=== PATIENT | female | born 1955 | race Caucasian/White ===

== ENCOUNTER → 2017-01-29 | Outpatient (CLI) | payer OTHER ==
[2017-01-29 13:36] LABS: Basophils # (A) 0.1 k/uL (0-0.2); Basophils % (A) 1 %; CH 33.3; CHCM 33.9; Eosinophils # (A) 0.1 k/uL (0-0.7); Eosinophils % (A) 2 %; HCT 38.2 % (34.0-46.0); HDW 2.47; HGB 12.7 gm/dL (11.4-16.0); Luc # (Auto) 0.13; Luc % (Auto) 3; Lymphocytes # (A) 1.2 k/uL (1.0-4.8); Lymphocytes % (A) 27 %; MCH 32.8 pg (25.0-35.0); MCHC 33.3 g/dL (31.0-37.0); MCV 98.5 fL (80.0-100.0); Mean Platelet Volume 6.3; Monocytes # (A) 0.4 k/uL (0-1.0); Monocytes % (A) 8 %; Neutrophils # (A) 2.6 k/uL (1.3-7.7); Neutrophils % (A) 58 %; RBC 3.88 m/uL (3.80-5.40); RDW 13.4 % (11.5-15.5); WBC 4.4 k/uL (3.8-10.6); WBC (Perox) 4.58
[2017-01-29 14:24] LABS: ALT 42 U/L (9-52); AST 29 U/L (14-36); Alkaline Phosphatase 48 U/L (38-126); Anion Gap 10 mmol/L; Blood Urea Nitrogen 12 mg/dL (7-17); Calcium 9.5 mg/dL (8.4-10.2); Carbon Dioxide 26 mmol/L (22-30); Chloride 99 mmol/L (98-107); Glucose 84 mg/dL (74-99); Non-African American GFR(MDRD) >60 (>60 ml/min/1.73 sqM); Potassium 4.6 mmol/L (3.5-5.1); Sodium 135 mmol/L (137-145); Total Bilirubin 0.5 mg/dL (0.2-1.3); Total Protein 6.7 g/dL (6.3-8.2)
== END | disposition home or self-care (01) ==
LOC: LABWHC1 12:56
PROVIDERS: ATTEND Internal Medicine Gastroenterology
DX: K51.90 Ulcerative colitis, unspecified, without complications (principal)
CPT/HCPCS: 36415; 80053; 85025

== ENCOUNTER → 2017-03-11 | Outpatient (CLI) | payer OTHER ==
[2017-03-11 12:01] LABS: ALT 37 U/L (9-52); AST 31 U/L (14-36); Alkaline Phosphatase 41 U/L (38-126); Anion Gap 9 mmol/L; Blood Urea Nitrogen 15 mg/dL (7-17); Calcium 9.3 mg/dL (8.4-10.2); Carbon Dioxide 28 mmol/L (22-30); Chloride 103 mmol/L (98-107); Cholesterol 166 mg/dL (<200); Glucose 90 mg/dL (74-99); HDL Cholesterol 82 mg/dL (40-60); Non-African American GFR(MDRD) >60 (>60 ml/min/1.73 sqM); Potassium 4.3 mmol/L (3.5-5.1); Sodium 140 mmol/L (137-145); Total Bilirubin 0.4 mg/dL (0.2-1.3); Total Protein 6.6 g/dL (6.3-8.2)
== END | disposition home or self-care (01) ==
LOC: LABWHC1 11:02
PROVIDERS: ATTEND Internal Medicine Interventional Cardiology
DX: E78.2 Mixed hyperlipidemia (principal)
CPT/HCPCS: 36415; 80053; 80061

== ENCOUNTER → 2017-07-30 | Outpatient (CLI) | payer OTHER ==
--- NOTE | 2017-07-31 10:13 | MM ---
Reason for exam: screening (asymptomatic). Last mammogram was performed 2 years and 3 months ago. History: Patient is postmenopausal. Benign excisional biopsy of the right breast, May 2005. 2 cyst aspirations of the left breast. Excisional biopsy of the left breast. Took hormonal contraceptives for 9 years beginning at age 21. Physical Findings: A clinical breast exam by your physician is recommended on an annual basis and results should be correlated with mammographic findings. MG Screening Mammo w CAD Bilateral CC and MLO view(s) were taken. Prior study comparison: April 19, 2015, bilateral MG screening mammo w CAD. July 29, 2013, CAD bilateral diagnostic mammogram. The breast tissue is heterogeneously dense. This may lower the sensitivity of mammography. Finding: There are typically benign vascular calcifications in both breasts. There is no discrete abnormality. ASSESSMENT: Benign, BI-RAD 2 RECOMMENDATION: Routine screening mammogram of both breasts in 1 year.
== END | disposition home or self-care (01) ==
LOC: RADMAMWWP 13:42
PROVIDERS: ATTEND Obstetrics & Gynecology
DX: Z12.31 Encounter for screening mammogram for malignant neoplasm of breast (principal)
CPT/HCPCS: 77067

== ENCOUNTER → 2017-09-25 | Outpatient (CLI) | payer OTHER ==
[2017-09-25 13:07] LABS: ALT 23 U/L (9-52); AST 28 U/L (14-36); Albumin 4.2 g/dL (3.5-5.0); Alkaline Phosphatase 46 U/L (38-126); Anion Gap 8 mmol/L; Blood Urea Nitrogen 18 mg/dL (7-17); Carbon Dioxide 30 mmol/L (22-30); Chloride 101 mmol/L (98-107); Cholesterol 162 mg/dL (<200); Glucose 89 mg/dL (74-99); HDL Cholesterol 82 mg/dL (40-60); LDL Cholesterol,Calculated 68 mg/dL (0-99); Potassium 4.7 mmol/L (3.5-5.1); Sodium 139 mmol/L (137-145); Total Bilirubin 0.5 mg/dL (0.2-1.3); Triglycerides 60 mg/dL (<150)
== END | disposition home or self-care (01) ==
LOC: LABWHC1 12:25
PROVIDERS: ATTEND Internal Medicine Interventional Cardiology
DX: E78.2 Mixed hyperlipidemia (principal)
CPT/HCPCS: 36415; 80053; 80061

== ENCOUNTER 2018-03-06 09:09 | Day surgery (SDC) | payer OTHER ==
[2018-03-04 09:55] VITALS: BMI 22.3
[~2018-03-06 09:09] MED LIST: LACTATED RINGERS 1,000 ML IV SCH; LIDOCAINE 1% 20 ML VIAL (10MG/ML) FOR IV START INTRADERMA PRN
[2018-03-06 10:17] VITALS: TEMP 98.1
[2018-03-06] MEDS ORDERED: PROPOFOL 10 MG/ML 20 ML VIAL IV ONE (10:36)
[2018-03-06] MEDS ORDERED: LIDOCAINE 1% INJ 10MG/ML (20 ML MDV) ONE (10:36)
--- NOTE | 2018-03-06 10:50 | P.PCN ---
Date of Procedure: 03/06/18 Procedure(s) Performed: BRIEF HISTORY: Patient is a 62-year-old pleasant white female, scheduled for an elective colonoscopy as a part of surveillance of long-standing history of ulcerative colitis. She was diagnosed in 2009 and remains in clinical remission. She is maintained on azathioprine and Lialda. PROCEDURE PERFORMED: Colonoscopy with biopsy. PREOPERATIVE DIAGNOSIS: Surveillance of long-standing history of ulcerative colitis. IV sedation per Anesthesia. PROCEDURE: After informed consent was obtained, the patient, was brought into the endoscopy unit. IV sedation was administered by Anesthesia under continuous monitoring. Digital rectal examination was normal. Initially the Olympus CF- 160 flexible video colonoscope was then inserted in the rectum, gradually advanced into the cecum without any difficulty. Careful examination was performed as the scope was gradually being withdrawn. Ileocecal valve and the appendiceal orifice were visualized and appeared normal. Prep was excellent. Mucosa of the cecum, ascending colon, transverse colon, descending colon, sigmoid colon, and rectum appeared normal. Multiple random biopsies were done from rectum to the cecum at every 10 cm intervals. Retroflexion was performed in the rectum and no lesions were seen. The patient tolerated the procedure well. IMPRESSION: Normal-appearing colon from rectum to cecum with no evidence of active colitis or colorectal neoplasia . RECOMMENDATIONS: Findings of this examination were discussed with the patient as well as a family. She was advised to follow with the biopsy results. She will continue with her current medications. If the biopsy does not have any evidence of dysplasia, she can have a repeat colonoscopy in 2 years.
[2018-03-06 10:59] VITALS: RESP 16
[2018-03-06 11:23] VITALS: BP 135/79; PULSE 68
== END 2018-03-06 11:47 | disposition home or self-care (01) ==
LOC: ORWHC2ENDO 09:09
PROVIDERS: ATTEND Internal Medicine Gastroenterology
DX: K51.90 Ulcerative colitis, unspecified, without complications (principal); K62.89 Other specified diseases of anus and rectum; I10 Essential (primary) hypertension; E78.5 Hyperlipidemia, unspecified; Z79.899 Other long term (current) drug therapy
CPT/HCPCS: 88305; 45380; J2001; J2704

== ENCOUNTER → 2018-03-16 | Outpatient (CLI) | payer OTHER ==
[2018-03-16 17:12] LABS: Basophils # (A) 0.1 k/uL (0-0.2); Basophils % (A) 1 %; Eosinophils # (A) 0.1 k/uL (0-0.7); Eosinophils % (A) 2 %; HCT 39.2 % (34.0-46.0); HGB 12.3 gm/dL (11.4-16.0); Lymphocytes # (A) 1.1 k/uL (1.0-4.8); Lymphocytes % (A) 19 %; MCH 31.7 pg (25.0-35.0); MCHC 31.4 g/dL (31.0-37.0); MCV 101.1 fL (80.0-100.0); Macrocytosis Slight; Mean Platelet Volume 6.5; Monocytes # (A) 0.3 k/uL (0-1.0); Monocytes % (A) 6 %; Neutrophils # (A) 3.9 k/uL (1.3-7.7); Neutrophils % (A) 71 %; Platelet Count 298 k/uL (150-450); RBC 3.88 m/uL (3.80-5.40); RDW 14.5 % (11.5-15.5); WBC 5.6 k/uL (3.8-10.6)
[2018-03-16 17:22] LABS: ALT 32 U/L (9-52); AST 30 U/L (14-36); Albumin 4.2 g/dL (3.5-5.0); Alkaline Phosphatase 44 U/L (38-126); Anion Gap 6 mmol/L; Blood Urea Nitrogen 12 mg/dL (7-17); Calcium 9.5 mg/dL (8.4-10.2); Carbon Dioxide 29 mmol/L (22-30); Chloride 103 mmol/L (98-107); Glucose 92 mg/dL (74-99); Potassium 4.1 mmol/L (3.5-5.1); Sodium 138 mmol/L (137-145); Total Bilirubin 0.6 mg/dL (0.2-1.3); Total Protein 6.9 g/dL (6.3-8.2)
== END | disposition home or self-care (01) ==
LOC: LABWHC1 16:57
PROVIDERS: ATTEND Internal Medicine Gastroenterology
DX: K51.90 Ulcerative colitis, unspecified, without complications (principal)
CPT/HCPCS: 36415; 80053; 85025

== ENCOUNTER → 2018-04-17 | Outpatient (CLI) | payer OTHER ==
[2018-04-17 14:24] LABS: ALT 28 U/L (9-52); AST 31 U/L (14-36); Cholesterol 170 mg/dL (<200); HDL Cholesterol 93 mg/dL (40-60); LDL Cholesterol,Calculated 63 mg/dL (0-99); Triglycerides 69 mg/dL (<150)
== END ==
LOC: LABWHC1 13:18
PROVIDERS: ATTEND Internal Medicine Interventional Cardiology
DX: E78.2 Mixed hyperlipidemia (principal)
CPT/HCPCS: 36415; 80061; 84450; 84460

== ENCOUNTER → 2018-09-10 | Outpatient (CLI) | payer OTHER ==
--- NOTE | 2018-09-14 08:47 | MM ---
Reason for exam: screening (asymptomatic). Last mammogram was performed 1 year and 1 month ago. History: Patient is postmenopausal. Benign excisional biopsy of the right breast, May 2005. 2 cyst aspirations of the left breast. Excisional biopsy of the left breast. Took hormonal contraceptives for 9 years beginning at age 21. Physical Findings: A clinical breast exam by your physician is recommended on an annual basis and results should be correlated with mammographic findings. MG 3D Screening Mammo W/Cad Bilateral CC and MLO view(s) were taken. Prior study comparison: July 30, 2017, bilateral MG screening mammo w CAD. April 24, 2015, right breast MG work up mamm w CAD RT. The breast tissue is heterogeneously dense. This may lower the sensitivity of mammography. No significant changes when compared with prior studies. ASSESSMENT: Benign, BI-RAD 2 RECOMMENDATION: Routine screening mammogram of both breasts in 1 year.
== END | disposition home or self-care (01) ==
LOC: RADMAMWWP 16:38
PROVIDERS: ATTEND Obstetrics & Gynecology
DX: Z12.31 Encounter for screening mammogram for malignant neoplasm of breast (principal)
CPT/HCPCS: 77063; 77067

== ENCOUNTER → 2018-09-25 | Outpatient (CLI) | payer OTHER ==
[2018-09-25 10:25] LABS: Basophils # (A) 0.1 k/uL (0-0.2); Basophils % (A) 2 %; Eosinophils # (A) 0.2 k/uL (0-0.7); Eosinophils % (A) 4 %; HGB 12.6 gm/dL (11.4-16.0); Lymphocytes # (A) 0.9 k/uL (1.0-4.8); Lymphocytes % (A) 23 %; MCH 32.8 pg (25.0-35.0); MCHC 32.2 g/dL (31.0-37.0); Macrocytosis Slight; Mean Platelet Volume 5.9; Monocytes # (A) 0.3 k/uL (0-1.0); Monocytes % (A) 7 %; Neutrophils # (A) 2.4 k/uL (1.3-7.7); Neutrophils % (A) 62 %; Platelet Count 336 k/uL (150-450); RBC 3.82 m/uL (3.80-5.40); RDW 14.4 % (11.5-15.5); WBC 3.8 k/uL (3.8-10.6)
[2018-09-25 16:46] LABS: Albumin 4.4 g/dL (3.80-4.90); Albumin/Globulin Ratio 2.1 (1.60-3.17); Anion Gap 10.1 mmol/L (4.00-12.00); Calcium 9.6 mg/dL (8.7-10.3); Carbon Dioxide 27.9 mmol/L (21.6-31.8); Globulin 2.1 g/dL (1.6-3.3); Potassium 4.3 mmol/L (3.5-5.5); Total Bilirubin 0.5 mg/dL (0.2-1.2); Total Protein 6.5 g/dL (6.2-8.2)
== END | disposition home or self-care (01) ==
LOC: LABWHC1 09:58
PROVIDERS: ATTEND Internal Medicine Gastroenterology
DX: K51.90 Ulcerative colitis, unspecified, without complications (principal)
CPT/HCPCS: 36415; 80053; 85025

== ENCOUNTER → 2018-11-05 | Outpatient (CLI) | payer OTHER ==
[2018-11-05 16:48] LABS: LDL Cholesterol,Calculated 62.6 mg/dL (0.0-131.0); VLDL Calculation 10.4 mg/dL (5.00-40.00)
== END | disposition home or self-care (01) ==
LOC: LABWHC1 10:28
PROVIDERS: ATTEND Internal Medicine Interventional Cardiology
DX: E78.2 Mixed hyperlipidemia (principal)
CPT/HCPCS: 36415; 80061; 84450; 84460

== ENCOUNTER → 2019-02-19 | Outpatient (CLI) | payer OTHER ==
[2019-02-19 10:20] LABS: Basophils # (A) 0.1 k/uL (0-0.2); Basophils % (A) 2 %; Eosinophils # (A) 0.1 k/uL (0-0.7); Eosinophils % (A) 2 %; HCT 37.1 % (34.0-46.0); HGB 11.9 gm/dL (11.4-16.0); Lymphocytes % (A) 26 %; MCH 32.4 pg (25.0-35.0); MCV 101.3 fL (80.0-100.0); Macrocytosis Slight; Mean Platelet Volume 6.7; Monocytes # (A) 0.3 k/uL (0-1.0); Monocytes % (A) 9 %; Neutrophils # (A) 2.3 k/uL (1.3-7.7); Neutrophils % (A) 59 %; Platelet Count 303 k/uL (150-450); RBC 3.66 m/uL (3.80-5.40); WBC 3.8 k/uL (3.8-10.6)
[2019-02-19 18:41] LABS: ALT 20 U/L (8-44); AST 27 U/L (13-35); African American GFR (CKD) 112.4 (60.0-200.0); Albumin/Globulin Ratio 2.32 (1.60-3.17); Alkaline Phosphatase 47 U/L (41-126); BUN/Creat Ratio 26.67 Ratio (12.00-20.00); Calcium 9.2 mg/dL (8.7-10.3); Carbon Dioxide 24.4 mmol/L (21.6-31.8); Chloride 105 mmol/L (96-109); Cholesterol 168 mg/dL (0-200); Globulin 1.9 g/dL (1.6-3.3); Glucose 86 mg/dL (70-110); Potassium 4.4 mmol/L (3.5-5.5); Sodium 140 mmol/L (135-145); Total Bilirubin 0.5 mg/dL (0.3-1.2); Total Protein 6.3 g/dL (6.2-8.2); Triglycerides <50.0 mg/dL (0.0-149.0); VLDL Calculation 9.98 mg/dL (5.00-40.00)
== END | disposition home or self-care (01) ==
LOC: LABWHC1 09:49
PROVIDERS: ATTEND Family Medicine
DX: E78.5 Hyperlipidemia, unspecified (principal); I10 Essential (primary) hypertension; M81.0 Age-related osteoporosis without current pathological fracture
CPT/HCPCS: 36415; 80053; 80061; 82306; 85025

== ENCOUNTER → 2019-05-10 | Outpatient (CLI) | payer OTHER ==
[2019-05-11 00:37] LABS: ALT 24 U/L (8-44); AST 30 U/L (13-35); Chol/HDL Ratio 1.86; Cholesterol 179 mg/dL (0-200); Triglycerides <50.0 mg/dL (0.0-149.0)
== END | disposition home or self-care (01) ==
LOC: LABWHC1 15:14
PROVIDERS: ATTEND Internal Medicine Interventional Cardiology
DX: E78.2 Mixed hyperlipidemia (principal)
CPT/HCPCS: 36415; 80061; 84450; 84460

== ENCOUNTER → 2019-06-25 | Outpatient (CLI) | payer OTHER ==
[2019-06-25 10:54] LABS: Basophils % (A) 1 %; Eosinophils # (A) 0.1 k/uL (0-0.7); Eosinophils % (A) 2 %; HCT 36.9 % (34.0-46.0); HGB 12.5 gm/dL (11.4-16.0); Lymphocytes # (A) 1.1 k/uL (1.0-4.8); Lymphocytes % (A) 27 %; MCH 34.1 pg (25.0-35.0); MCHC 33.9 g/dL (31.0-37.0); MCV 100.7 fL (80.0-100.0); Macrocytosis Slight; Mean Platelet Volume 7.2; Monocytes # (A) 0.3 k/uL (0-1.0); Monocytes % (A) 7 %; Neutrophils # (A) 2.5 k/uL (1.3-7.7); Neutrophils % (A) 61 %; Platelet Count 298 k/uL (150-450); RBC 3.66 m/uL (3.80-5.40); RDW 13.5 % (11.5-15.5); WBC 4.1 k/uL (3.8-10.6)
[2019-06-25 16:57] LABS: African American GFR (CKD) 119.4 (60.0-200.0); Albumin 4.5 g/dL (3.80-4.90); Albumin/Globulin Ratio 2.37 (1.60-3.17); Anion Gap 7.9 mmol/L (4.00-12.00); Calcium 9.5 mg/dL (8.7-10.3); Carbon Dioxide 29.1 mmol/L (21.6-31.8); Globulin 1.9 g/dL (1.6-3.3); Potassium 3.8 mmol/L (3.5-5.5); Total Bilirubin 0.6 mg/dL (0.3-1.2); Total Protein 6.4 g/dL (6.2-8.2)
== END | disposition home or self-care (01) ==
LOC: LABWHC1 09:44
PROVIDERS: ATTEND Internal Medicine Gastroenterology
DX: K51.90 Ulcerative colitis, unspecified, without complications (principal)
CPT/HCPCS: 36415; 80053; 85025

== ENCOUNTER → 2020-02-15 | Outpatient (CLI) | payer OTHER ==
[2020-02-15 09:09] LABS: Basophils # (A) 0.1 k/uL (0-0.2); Basophils % (A) 1 %; Eosinophils # (A) 0.1 k/uL (0-0.7); Eosinophils % (A) 3 %; HCT 36.4 % (34.0-46.0); HGB 12.1 gm/dL (11.4-16.0); Lymphocytes # (A) 0.8 k/uL (1.0-4.8); Lymphocytes % (A) 21 %; MCH 33.7 pg (25.0-35.0); MCHC 33.2 g/dL (31.0-37.0); MCV 101.7 fL (80.0-100.0); Macrocytosis Slight; Monocytes # (A) 0.2 k/uL (0-1.0); Monocytes % (A) 7 %; Neutrophils # (A) 2.4 k/uL (1.3-7.7); Neutrophils % (A) 66 %; Platelet Count 272 k/uL (150-450); RBC 3.58 m/uL (3.80-5.40); RDW 13.9 % (11.5-15.5); WBC 3.7 k/uL (3.8-10.6)
[2020-02-15 16:31] LABS: African American GFR (CKD) 118.5 (60.0-200.0); Albumin 4.5 g/dL (3.80-4.90); Albumin/Globulin Ratio 2.14 (1.60-3.17); Anion Gap 8.5 mmol/L (4.00-12.00); Calcium 9.7 mg/dL (8.7-10.3); Carbon Dioxide 27.5 mmol/L (21.6-31.8); Chol/HDL Ratio 1.84; Globulin 2.1 g/dL (1.6-3.3); LDL Cholesterol,Calculated 55.4 mg/dL (0.0-131.0); Non-African American GFR(CKD) 102.3 (60.0-200.0); Potassium 3.9 mmol/L (3.5-5.5); Total Bilirubin 0.5 mg/dL (0.2-1.2); Total Protein 6.6 g/dL (6.2-8.2); VLDL Calculation 13.6 mg/dL (5.00-40.00)
== END ==
LOC: LABWHC1 07:45
PROVIDERS: ATTEND Internal Medicine Interventional Cardiology
DX: E78.2 Mixed hyperlipidemia (principal); K51.90 Ulcerative colitis, unspecified, without complications
CPT/HCPCS: 36415; 80053; 80061; 85025

== ENCOUNTER → 2020-03-01 | Outpatient (CLI) | payer OTHER ==
--- NOTE | 2020-03-03 08:54 | MM ---
Reason for exam: screening (asymptomatic). Last mammogram was performed 1 year and 6 months ago. History: Patient is postmenopausal. Benign excisional biopsy of the right breast, May 2005. 2 cyst aspirations of the left breast. Excisional biopsy of the left breast. Took hormonal contraceptives for 9 years beginning at age 21. Physical Findings: A clinical breast exam by your physician is recommended on an annual basis and results should be correlated with mammographic findings. MG 3D Screening Mammo W/Cad Bilateral CC and MLO view(s) were taken. Prior study comparison: September 10, 2018, bilateral MG 3d screening mammo w/cad. July 30, 2017, bilateral MG screening mammo w CAD. April 24, 2015, right breast MG work up mamm w CAD RT. April 19, 2015, bilateral MG screening mammo w CAD. The breast tissue is heterogeneously dense. This may lower the sensitivity of mammography. No significant changes when compared with prior studies. ASSESSMENT: Negative, BI-RAD 1 RECOMMENDATION: Routine screening mammogram of both breasts in 1 year.
== END | disposition home or self-care (01) ==
LOC: RADMAMWWP 11:17
PROVIDERS: ATTEND Obstetrics & Gynecology
DX: Z12.31 Encounter for screening mammogram for malignant neoplasm of breast (principal)
CPT/HCPCS: 77063; 77067

== ENCOUNTER 2020-04-07 10:11 | Day surgery (SDC) | payer OTHER ==
[2020-04-07] MEDS ORDERED: LACTATED RINGERS 1,000 ML IV SCH (10:31)
[2020-04-07 10:35] VITALS: RESP 16; TEMP 98.1
[2020-04-07] MEDS ORDERED: LIDOCAINE 1% (10MG/ML) FOR IV START INTRADERMA ONE (10:49)
[2020-04-07] MEDS ORDERED: PROPOFOL 10 MG/ML 20 ML VIAL IV ONE (12:04)
--- NOTE | 2020-04-07 12:17 | P.PCN ---
Date of Procedure: 04/07/20 Procedure(s) Performed: BRIEF HISTORY: Patient is a 64-year-old pleasant female scheduled for an elective colonoscopy as a part of surveillance of long-standing history of ulcerative colitis PROCEDURE PERFORMED: Colonoscopy with random biopsy. PREOPERATIVE DIAGNOSIS: Long-standing history of ulcerative colitis. IV sedation per Anesthesia. PROCEDURE: After informed consent was obtained, the patient, was brought into the endoscopy unit. IV sedation was administered by Anesthesia under continuous monitoring. Digital rectal examination was normal. Initially the Olympus CF-160 flexible video colonoscope was then inserted in the rectum, gradually advanced into the cecum without any difficulty. Careful examination was performed as the scope was gradually being withdrawn. Ileocecal valve and the appendiceal orifice were visualized and appeared normal. Prep was excellent. Mucosa of the cecum, ascending colon, transverse colon, descending colon, sigmoid colon, and rectum appeared normal. Biopsies were done from ascending colon to rectum at every 10 cm intervals to rule out dysplasia. Retroflexion was performed in the rectum and no lesions were seen. The patient tolerated the procedure well. IMPRESSION: Normal-appearing colon from rectum to cecum with no evidence of colitis or colorectal neoplasia. RECOMMENDATIONS: Findings of this examination were discussed with the patient as well as a family. She was advised to follow with the biopsy results. Continue with same medications. Recommend repeat colonoscopy in 2 years..
[2020-04-07 12:34] VITALS: BP 122/63; PULSE 79
== END 2020-04-07 12:50 | disposition home or self-care (01) ==
LOC: ORWHC2ENDO 10:11
PROVIDERS: ATTEND Internal Medicine Gastroenterology
DX: K51.90 Ulcerative colitis, unspecified, without complications (principal); Z79.899 Other long term (current) drug therapy; Z90.710 Acquired absence of both cervix and uterus; Z98.890 Other specified postprocedural states
CPT/HCPCS: 88305; 45380; J2704

== ENCOUNTER → 2020-09-19 | Outpatient (CLI) | payer MEDICAID, MEDICARE ==
[2020-09-19 12:20] LABS: ALT 24 U/L (4-34); AST 35 U/L (14-36)
[2020-09-19 12:35] LABS: Cholesterol 174 mg/dL (<200); HDL Cholesterol 88 mg/dL (40-60); LDL Cholesterol,Calculated 70 mg/dL (0-99); Triglycerides 78 mg/dL (<150)
== END | disposition home or self-care (01) ==
LOC: LABWHC1 11:31
PROVIDERS: ATTEND Nurse Practitioner Adult Health
DX: E78.2 Mixed hyperlipidemia (principal)
CPT/HCPCS: 36415; 80061; 84450; 84460

== ENCOUNTER → 2021-01-16 | Outpatient (CLI) | payer MEDICARE ==
--- NOTE | 2021-01-16 11:45 | MM ---
Reason for exam: additional evaluation requested from prior study. Last mammogram was performed 11 months ago. History: Patient is postmenopausal. Benign excisional biopsy of the right breast, May 2005. 2 cyst aspirations of the left breast. Excisional biopsy of the left breast. Took hormonal contraceptives for 9 years beginning at age 21. Physical Findings: Nurse Summary: 1cm nodule in the left breast at 9 o'clock (nurse ms). MG 3D Diag Mammo W/Cad LT CC and MLO view(s) were taken of the left breast. Prior study comparison: March 01, 2020, bilateral MG 3d screening mammo w/cad. September 10, 2018, bilateral MG 3d screening mammo w/cad. The breast tissue is heterogeneously dense. This may lower the sensitivity of mammography. Vascular benign calcifications. Patient has left breast lump and pain, focal ultrasound of these areas. No significant new findings when compared with previous films. These results were verbally communicated with the patient and result sheet given to the patient on 01/16/21. ASSESSMENT: Incomplete: need additional imaging evaluation, BI-RAD 0 RECOMMENDATION: Ultrasound of the left breast.
--- NOTE | 2021-01-16 11:47 | USB ---
Reason for exam: additional evaluation requested from abnormal screening. History: Patient is postmenopausal. Benign excisional biopsy of the right breast, May 2005. 2 cyst aspirations of the left breast. Excisional biopsy of the left breast. Took hormonal contraceptives for 9 years beginning at age 21. US Breast Limited LT Left limited breast ultrasound including focal area of concern, retroareolar and axilla demonstrates mild left retroareolar ductal ectasia at the posterior nipple, benign. No sonographic finding at lump or pain. These results were verbally communicated with the patient and result sheet given to the patient on 01/16/21. ASSESSMENT: Benign, BI-RAD 2 RECOMMENDATION: Return to routine screening mammogram schedule for both breasts. Back on schedule for February 2021. Manage on a clinical basis with regard to lump and pain.
== END | disposition home or self-care (01) ==
LOC: RADMAMWWP 10:18
PROVIDERS: ATTEND Family Medicine
DX: N63.20 Unspecified lump in the left breast, unspecified quadrant (principal); R92.1 Mammographic calcification found on diagnostic imaging of breast; Z78.0 Asymptomatic menopausal state
CPT/HCPCS: 77065; 76642; G0279; 77061

== ENCOUNTER → 2021-04-24 | Outpatient (CLI) | payer MEDICARE ==
[2021-04-25 15:22] LABS: Chol/HDL Ratio 1.96 Ratio; Triglycerides 44.5 mg/dL (0.00-149.00); VLDL Calculation 8.9 mg/dL (5.00-40.00)
[2021-04-25 16:14] LABS: African American GFR (CKD) 116.1 (60.0-200.0); Albumin 4.6 g/dL (3.8-4.9); Albumin/Globulin Ratio 1.94 (1.60-3.17); Anion Gap 15.6 mmol/L (4.00-12.00); BUN/Creat Ratio 21.46 Ratio (12.00-20.00); Blood Urea Nitrogen 11.2 mg/dL (9.0-27.0); Calcium 9.4 mg/dL (8.7-10.3); Carbon Dioxide 21.1 mmol/L (21.6-31.8); Globulin 2.3 g/dL (1.6-3.3); Non-African American GFR(CKD) 100.1 (60.0-200.0); Potassium 4.2 mmol/L (3.5-5.5); Total Bilirubin 0.5 mg/dL (0.30-1.20); Total Protein 6.9 g/dL (6.2-8.2)
== END | disposition home or self-care (01) ==
LOC: LABWHC1 15:59
PROVIDERS: ATTEND Nurse Practitioner Adult Health
DX: I10 Essential (primary) hypertension (principal); E78.2 Mixed hyperlipidemia
CPT/HCPCS: 36415; 80053; 80061

== ENCOUNTER → 2021-06-05 | Outpatient (CLI) | payer MEDICARE ==
--- NOTE | 2021-06-06 10:49 | MM ---
Reason for exam: screening (asymptomatic). Last mammogram was performed 5 months ago. History: Patient is postmenopausal. Benign excisional biopsy of the right breast, May 2005. 2 cyst aspirations of the left breast. Excisional biopsy of the left breast. Took hormonal contraceptives for 9 years beginning at age 21. Physical Findings: A clinical breast exam by your physician is recommended on an annual basis and results should be correlated with mammographic findings. MG 3D Screening Mammo W/Cad Bilateral CC and MLO view(s) were taken. Prior study comparison: January 16, 2021, left breast MG 3d diag mammo w/cad LT. March 01, 2020, bilateral MG 3d screening mammo w/cad. The breast tissue is heterogeneously dense. This may lower the sensitivity of mammography. Finding #1: There is stable architectural distortion in the upper quadrant of the right breast consistent with known excision changes. Finding #2: There are typically benign vascular calcifications in both breasts. There is no discrete abnormality. ASSESSMENT: Benign, BI-RAD 2 RECOMMENDATION: Routine screening mammogram of both breasts in 1 year.
== END | disposition home or self-care (01) ==
LOC: RADMAMWWP 08:01
PROVIDERS: ATTEND Obstetrics & Gynecology
DX: Z12.31 Encounter for screening mammogram for malignant neoplasm of breast (principal); Z78.0 Asymptomatic menopausal state
CPT/HCPCS: 77063; 77067

== ENCOUNTER → 2021-06-11 | Outpatient (CLI) | payer MEDICARE ==
--- NOTE | 2021-06-12 08:20 | XR ---
EXAMINATION TYPE: XR chest 2V DATE OF EXAM: 06/11/2021 COMPARISON: NONE HISTORY: Shortness of breath TECHNIQUE: Frontal and lateral views of the chest are obtained. FINDINGS: Scattered senescent parenchymal changes noted. Hyperinflation compatible with COPD. No evidence for infiltrate. No evidence for atelectasis. Heart size is stable. Mediastinal structures are stable and grossly unremarkable. No evidence for hilar prominence. Degenerative changes dorsal spine. IMPRESSION: 1. No evidence for acute pulmonary disease.
== END | disposition home or self-care (01) ==
LOC: RADXRMAIN 16:28
PROVIDERS: ATTEND Physician Assistant Medical
DX: J98.4 Other disorders of lung (principal)
CPT/HCPCS: 71046

== ENCOUNTER → 2021-08-28 | Outpatient (CLI) | payer MEDICARE ==
--- NOTE | 2021-08-28 13:00 | XR ---
EXAMINATION TYPE: XR chest 2V DATE OF EXAM: 08/28/2021 COMPARISON: Chest x-ray 06/11/2021 HISTORY: Cough for several months TECHNIQUE: Frontal and lateral views of the chest are obtained. FINDINGS: There is no focal air space opacity, pleural effusion, or pneumothorax seen. The cardiac silhouette size is within normal limits. Prominent lung volumes are consistent with underlying COPD. Right hemidiaphragm remains mildly elevated. There is increased retrosternal airspace and flattening the hemidiaphragms. The osseous structures are intact, there is a gentle spinal curvature. IMPRESSION: No acute cardiopulmonary process.
== END | disposition home or self-care (01) ==
LOC: RADXRMAIN 10:19
PROVIDERS: ATTEND Physician Assistant Medical
DX: R05.9 Cough, unspecified (principal)
CPT/HCPCS: 71046

== ENCOUNTER → 2021-10-16 | Outpatient (CLI) | payer MEDICARE | LOC: CPPFTMAIN 11:12 | PROVIDERS: ATTEND Family Medicine | DX: R05.9 Cough, unspecified (principal); R91.8 Other nonspecific abnormal finding of lung field | CPT/HCPCS: 94060; 94726; 94729 ==

== ENCOUNTER → 2021-10-30 | Outpatient (CLI) | payer MEDICARE ==
[2021-10-30 23:31] LABS: African American GFR (CKD) 117.7 (60.0-200.0); Albumin 4.1 g/dL (3.8-4.9); Albumin/Globulin Ratio 1.64 (1.60-3.17); Anion Gap 11.6 mmol/L (10.00-18.00); BUN/Creat Ratio 16.6 Ratio (12.00-20.00); Blood Urea Nitrogen 8.3 mg/dL (9.0-27.0); Calcium 9.1 mg/dL (8.7-10.3); Carbon Dioxide 25.4 mmol/L (20.0-27.5); Globulin 2.5 g/dL (1.6-3.3); Non-African American GFR(CKD) 101.6 (60.0-200.0); Potassium 4.3 mmol/L (3.5-5.5); Total Bilirubin 0.3 mg/dL (0.30-1.20); Total Protein 6.6 g/dL (6.2-8.2)
[2021-10-30 23:32] LABS: HDL Cholesterol 64.5 mg/dL (40.00-60.00); Triglycerides 45.8 mg/dL (0.00-149.00)
[2021-10-30 23:40] LABS: HCT 32.8 % (37.2-46.3); HGB 10.4 g/dL (12.0-15.0); MCH 33.7 pg (27.0-32.0); MCHC 31.7 g/dL (32.0-37.0); MCV 106.1 fL (80.0-97.0); Mean Platelet Volume 9.2 fL (9.5-12.2); NRBC Per 100 WBC 0 /100 WBCS (0.0-0.0); Platelet Count 324 X 10*3/uL (140-440); RBC 3.09 X 10*6/uL (4.10-5.20); RDW 14.6 % (11.5-14.5); WBC 3.86 X 10*3/uL (4.50-10.00)
[2021-10-30 23:45] LABS: Chol/HDL Ratio 2.08 Ratio; LDL Cholesterol,Direct Reflex 60.5 mg/dL (0.00-129.00)
[2021-10-31 00:17] LABS: Basophils # (A) 0.06 X 10*3/uL (0.00-0.10); Basophils % (A) 1.6 %; Eosinophils # (A) 0.05 X 10*3/uL (0.04-0.35); Eosinophils % (A) 1.3 %; Immature Grans, Automated 0.5 %; Lymphocytes # (A) 1.16 X 10*3/uL (0.90-5.00); Lymphocytes % (A) 30.1 %; Monocytes % (A) 10.4 %; Neutrophils # (A) 2.17 X 10*3/uL (1.80-7.70); Neutrophils % (A) 56.1 %
[2021-10-31 00:18] LABS: Macrocytosis (M) 2+
== END | disposition home or self-care (01) ==
LOC: LABWHC1 15:15
PROVIDERS: ATTEND Internal Medicine Interventional Cardiology
DX: I10 Essential (primary) hypertension (principal); E78.2 Mixed hyperlipidemia; E78.00 Pure hypercholesterolemia, unspecified
CPT/HCPCS: 36415; 80053; 80061; 83721; 85025

== ENCOUNTER 2021-12-17 13:17 | Emergency (ER) | payer MEDICARE ==
[2021-12-17 14:08] VITALS: RESP 16
--- NOTE | 2021-12-17 16:25 | ED ---
General Adult HPI - General Chief complaint: Syncope Stated complaint: Syncope Source: patient Mode of arrival: ambulatory Limitations: no limitations - History of Present Illness Initial comments: This 66-year-old female presents with with a complaint of having a syncopal episode at 4:30 AM. She states that she got up to go to the bathroom and then was at the sink slumped over and her came to her. He states that she passed out in his arms and he laid her down to the floor. She apparently woke up shortly thereafter. She does relate that for the past 2-1/2 days, she has had some fatigue. She has had occasional episodes of chills and fever. She did not measure her temperature but felt very hot last night during this incident. There is a thermometer apparently does not work at home. She also had some myalgias and slight cough. She also feels weak at times. She went to an urgent care prior to coming to the emergency department and they found that she is positive for influenza A. She denies any chest pain. She has had decrease food intake. Her appetite has been down. She denies any other complaints or modifying factors. There is no abdominal pain or leg pain or leg swelling. - Related Data Home Medications Medication Instructions Recorded Confirmed Mesalamine [Lialda] 4.8 gm PO DAILY 11/27/13 10/26/21 azaTHIOprine [Imuran] 100 mg PO HS 11/27/13 10/26/21 lisinopriL [Zestril] 5 mg PO DAILY 11/27/13 10/26/21 Calcium Carbonate/Vitamin D3 1 tab PO DAILY 03/04/18 10/26/21 [Calcium 500-Vit D3 200 Tablet] Multivitamins, Thera [Multivitamin 1 tab PO DAILY 03/04/18 10/26/21 (formulary)] Simvastatin [Zocor] 20 mg PO HS 10/26/21 10/26/21 Allergies Allergy/AdvReac Type Severity Reaction Status Date / Time No Known Allergies Allergy Verified 12/17/21 14:08 Review of Systems ROS Statement: Those systems with pertinent positive or pertinent negative responses have been documented in the HPI. ROS Other: All systems not noted in ROS Statement are negative. Past Medical History Past Medical History: Hyperlipidemia, Hypertension Additional Past Medical History / Comment(s): ulcerative colitis History of Any Multi-Drug Resistant Organisms: None Reported Past Surgical History: Breast Surgery, Section, Hysterectomy Additional Past Surgical History / Comment(s): [facility]. Breast Lumpectomy; Colonoscopy Past Anesthesia/Blood Transfusion Reactions: No Reported Reaction Past Psychological History: No Psychological Hx Reported Smoking Status: Never smoker Past Alcohol Use History: None Reported Past Drug Use History: None Reported - Past Family History Brother(s) Family Medical History: Cancer Additional Family Medical History / Comment(s): Throat CA General Exam - General Exam Comments Initial Comments: Constitutional: Alert and oriented, no apparent distress Vitals: Reviewed, please see nursing notes HEENT: No gross trauma identified, trachea midline, no respiratory distress Neck: No tenderness, good range of motion Heart: Regular rate and rhythm without murmur Lungs: Clear to auscultation bilaterally, no wheezing rhonchi or rales Abdomen: No tenderness or peritoneal signs noted, nondistended Back: No tenderness Neurologic: No gross sensory or motor deficits identified Integumentary: No rash or change in pigmentation Psychiatric: Alert and oriented, appropriate mood and affect Limitations: no limitations Course Vital Signs 12/17/21 14:06 Temperature 98.4 F Pulse Rate 87 Respiratory 16 Rate Blood Pressure 104/62 O2 Sat by Pulse 98 Oximetry Medical Decision Making - Medical Decision Making The patient was seen and examined. The EKG was done. This shows a normal sinus rhythm with no acute ST-T wave changes. The FL, QRS, and QTC intervals are normal. She states that since this happened at 4:30 AM, she has not had any further episodes of syncope, presyncope, problems with ambulation, or dizziness. She states that the urgent care told her to come to the ER for evaluation. She feels relatively normal at this point in time. She is offered workup and IV fluids but would prefer to go home. It is felt as though this is reasonable. She likely does have a degree of dehydration during her illness. She is instructed to increase her fluid intake. She will follow-up with her doctor closely this week. Tylenol and/or Motrin recommended if her symptoms of fever or chills returned. Return parameters are discussed in detail. Patient lives in no significant distress. She is offered Tamiflu but also refuses. Disposition Clinical Impression: Syncope, Influenza A Disposition: HOME SELF-CARE Condition: Good Instructions (If sedation given, give patient instructions): Syncope (ED), Influenza (ED) Additional Instructions: Please increase fluid hydration in the next several days. Please utilize Tylenol if needed for any pain or fever. Is patient prescribed a controlled substance at d/c from ED?: No Referrals: Mally Hammer MD [Primary Care Provider] - 1-2 days Time of Disposition: 16:24
[2021-12-17 16:59] VITALS: BP 128/78; PULSE 78; TEMP 98.2
== END 2021-12-17 16:58 | disposition home or self-care (01) ==
LOC: EC 13:17
DX: J10.1 Influenza due to other identified influenza virus with other respiratory manifestations (principal); R55 Syncope and collapse; I10 Essential (primary) hypertension; E78.5 Hyperlipidemia, unspecified; Z79.899 Other long term (current) drug therapy
CPT/HCPCS: 93005; 99283

== ENCOUNTER → 2022-01-23 | Outpatient (CLI) | payer MEDICARE ==
[2022-01-23 15:53] LABS: African American GFR (CKD) >90 (>60 ml/min/1.73 sqM); Blood Urea Nitrogen 18 mg/dL (7-17); Non-African American GFR(CKD) >90 (>60 ml/min/1.73 sqM)
--- NOTE | 2022-01-24 10:06 | CT ---
EXAMINATION TYPE: CT chest w con CT DLP: 140.4 mGycm, Automated exposure control for dose reduction was used. DATE OF EXAM: 01/23/2022 4:20 PM COMPARISON: None CLINICAL INDICATION:Female, 66 years old with history of R05.3 Abn wt loss, chronic cough R63.4, TECHNIQUE: Multiple axial images were obtained through the chest following the administration of 70 c c of Isovue 300. FINDINGS: LUNGS/ PLEURA: No evidence of focal consolidation, pneumothorax or pleural effusion. A posterior pleural-based right triangular-shaped nodule felt to represent atelectasis and/or intrafi ssural lymph node (series 4 image 39). There is atelectasis changes involving the medial aspect of the lingula, and medial middle lobe as we ll as the left lower lobe. Mild bronchiectasis seen within the lingula and middle lobe. There is a li ngular groundglass nodular area measuring 8 mm AIRWAY: Mild bronchiectasis changes in the lingula and right middle lobe. HEART: Size within normal limits. Mild atherosclerosis of the coronary arteries. MEDIASTINUM: No gross evidence of adenopathy. VASCULATURE: No aortic aneurysm. No evidence of pulmonary embolus. Mild scattered atherosclerosis of the arterial vasculature. Note is made of hemiazygous vein draining into the left brachiocephalic ve in. MUSCULOSKELETAL: No acute osseous abnormalities. Multilevel disc degeneration changes of the lower th oracic spine. SOFT TISSUES/LYMPH NODES: Unremarkable. LOWER NECK: No significant findings.Groundglass pulmonary nodule in the lingula measuring 8 mm. UPPER ABDOMEN: No significant findings. IMPRESSION: 1. Atelectasis and bronchiectasis within the right middle lobe and lingula which could represent Lad y [place] syndrome in the setting of chronic cough from a atypical mycobacteria. 2. 8mm lingula groundglass pulmonary nodule. Attention on follow-up imaging..
== END | disposition home or self-care (01) ==
LOC: RADCTMAIN 15:06
PROVIDERS: ATTEND Family Medicine
DX: J98.11 Atelectasis (principal); R91.1 Solitary pulmonary nodule; J47.9 Bronchiectasis, uncomplicated
CPT/HCPCS: 82565; 84520; 71260; 36415; Q9967

== ENCOUNTER → 2022-02-06 | Outpatient (CLI) | payer MEDICARE ==
[2022-02-07 01:39] LABS: Basophils # (A) 0.09 X 10*3/uL (0.00-0.10); Eosinophils # (A) 0.03 X 10*3/uL (0.04-0.35); Eosinophils % (A) 0.7 %; HGB 11.1 g/dL (12.0-15.0); Immature Grans, Automated 0.2 %; Lymphocytes # (A) 1.23 X 10*3/uL (0.90-5.00); Lymphocytes % (A) 27.6 %; MCH 33.5 pg (27.0-32.0); MCHC 31.7 g/dL (32.0-37.0); MCV 105.7 fL (80.0-97.0); Mean Platelet Volume 9.8 fL (9.5-12.2); Monocytes # (A) 0.47 X 10*3/uL (0.20-1.00); Monocytes % (A) 10.6 %; NRBC Per 100 WBC 0 /100 WBCS (0.0-0.0); Neutrophils # (A) 2.62 X 10*3/uL (1.80-7.70); Neutrophils % (A) 58.9 %; Platelet Count 272 X 10*3/uL (140-440); RBC 3.31 X 10*6/uL (4.10-5.20); RDW 15.5 % (11.5-14.5); WBC 4.45 X 10*3/uL (4.50-10.00)
[2022-02-07 02:52] LABS: Albumin 4.5 g/dL (3.8-4.9); Albumin/Globulin Ratio 2.12 (1.60-3.17); Anion Gap 9.3 mmol/L (10.00-18.00); BUN/Creat Ratio 20.06 Ratio (12.00-20.00); Blood Urea Nitrogen 13.5 mg/dL (9.0-27.0); Calcium 9.5 mg/dL (8.7-10.3); Carbon Dioxide 27.7 mmol/L (20.0-27.5); Globulin 2.1 g/dL (1.6-3.3); Non-African American GFR(CKD) 91.5 (60.0-200.0); Potassium 4.4 mmol/L (3.5-5.5); Total Bilirubin 0.4 mg/dL (0.30-1.20); Total Protein 6.6 g/dL (6.2-8.2)
== END | disposition home or self-care (01) ==
LOC: LABWHC1 15:49
PROVIDERS: ATTEND Internal Medicine Gastroenterology
DX: K51.90 Ulcerative colitis, unspecified, without complications (principal)
CPT/HCPCS: 36415; 80053; 85025

== ENCOUNTER → 2022-06-03 | Outpatient (CLI) | payer MEDICARE ==
[2022-06-03 18:16] LABS: ALT 21 U/L (8-44); AST 25 U/L (13-35); Albumin 4.5 g/dL (3.8-4.9); Albumin/Globulin Ratio 1.81 (1.60-3.17); Alkaline Phosphatase 47 U/L (41-126); BUN/Creat Ratio 22.11 Ratio (12.00-20.00); Blood Urea Nitrogen 12.6 mg/dL (9.0-27.0); Calcium 9.9 mg/dL (8.7-10.3); Carbon Dioxide 26.8 mmol/L (20.0-27.5); Chloride 100 mmol/L (96-109); Chol/HDL Ratio 2.04 Ratio; Globulin 2.5 g/dL (1.6-3.3); Glucose 75 mg/dL (70-110); LDL Cholesterol,Calculated 77.7 mg/dL (0.0-131.0); Non-African American GFR(CKD) 96.6 (60.0-200.0); Potassium 4.3 mmol/L (3.5-5.5); Sodium 138 mmol/L (135-145); Total Protein 7.1 g/dL (6.2-8.2); VLDL Calculation 12.58 mg/dL (5.00-40.00)
== END | disposition home or self-care (01) ==
LOC: LABWHC1 10:55
PROVIDERS: ATTEND Internal Medicine Interventional Cardiology
DX: E78.2 Mixed hyperlipidemia (principal)
CPT/HCPCS: 36415; 80053; 80061

== ENCOUNTER → 2022-06-24 | Outpatient (CLI) | payer MEDICARE ==
--- NOTE | 2022-06-25 18:19 | MM ---
Reason for Exam: Screening (asymptomatic). Last mammogram was performed 1 year(s) and 1 month(s) ago. Patient History: Menarche at age 12. First Full-Term at age 26. Left ovary removed at age 54. Right ovary removed at age 54. Hysterectomy at age 54. Postmenopausal. Hormonal Contraceptives for 9 years from age 21 until age 30. 05/2005, Benign Excisional Biopsy on the right side. Cyst Aspiration on the Left side. Cyst Aspiration on the Left side. Excisional Biopsy on the Left side. Risk Values: [place]en 5 year model risk: 2.8%. NCI Lifetime model risk: 9.9%. Prior Study Comparison: 03/01/2020 Bilateral Screening Mammogram, [facility]. 01/16/2021 Left Diagnostic Mammogram, [facility]. 06/05/2021 Bilateral Screening Mammogram, [facility]. Tissue Density: The breast tissue is heterogeneously dense. This may lower the sensitivity of mammography. Findings: Analyzed By CAD. Similar distortion upper-outer quadrant right breast likely related to prior excision. Benign vascular calcifications on both sides. Benign renal cyst calcification central right breast. Nodular asymmetric density lateral right CC view at middle depth does not persist on 3 images. No significant change from prior exams. Overall Assessment: Benign, BI-RAD 2 Management: Screening Mammogram of both breasts in 1 year. 1. Patient should continue monthly self breast exams. 2. A clinical breast exam by your physician is recommended on an annual basis. 3. This exam should not preclude additional follow-up of suspicious palpable abnormalities. Electronically signed and approved by: Yina Hackett M.D. Radiologist
== END | disposition home or self-care (01) ==
LOC: RADMAMWWP 16:55
PROVIDERS: ATTEND Obstetrics & Gynecology
DX: Z12.31 Encounter for screening mammogram for malignant neoplasm of breast (principal); Z78.0 Asymptomatic menopausal state; Z98.890 Other specified postprocedural states
CPT/HCPCS: 77063; 77067

== ENCOUNTER 2022-06-25 12:17 | Day surgery (SDC) | payer MEDICARE ==
[2022-06-24 11:35] VITALS: BMI 21.4
[~2022-06-25 12:17] MED LIST changes: +ALBUTEROL NEB (CONC) 2.5 MG/0.5 ML INHALATION ONE; +ATROPINE SULFATE 0.4 MG/ML 1 ML VIAL IM ONE; -LIDOCAINE 1% 20 ML VIAL (10MG/ML) FOR IV START INTRADERMA PRN; +LIDOCAINE 2% (PF) 20 MG/ML 5 ML VIAL INHALATION ONE; +LIDOCAINE VISCOUS 300 MG/15 ML CUP MUCOUS MEM ONE; +fentaNYL (PF) 50 MCG/ML 2 ML AMP IV PRN
[2022-06-25 12:35] VITALS: TEMP 97.3
[2022-06-25] MEDS ORDERED: LACTATED RINGERS 1,000 ML IV ONE (12:35)
[2022-06-25] MEDS ORDERED: LIDOCAINE 2% INJ 20 MG/ML (2 ML VIAL) ONE (13:12)
[2022-06-25] MEDS ORDERED: PROPOFOL 10 MG/ML 20 ML VIAL IV ONE (13:12)
[2022-06-25] MEDS ORDERED: fentaNYL (PF) 50 MCG/ML 2 ML AMP ONE (13:12)
[2022-06-25] MEDS ORDERED: MIDAZOLAM 2 MG/2 ML VIAL ONE (13:12)
[2022-06-25] MEDS ORDERED: LIDOCAINE 2% INJ 20 MG/ML INTRATRACH ONE (13:18)
[2022-06-25 13:36] VITALS: RESP 16
[2022-06-25 13:50] VITALS: BP 128/61; PULSE 83
--- NOTE | 2022-06-25 19:29 | PCN ---
PROCEDURE NOTE PROCEDURES PERFORMED: Bronchoscopy airway examination, therapeutic lavage and bronchoalveolar lavage of the right middle lobe and lingula. PREOPERATIVE DIAGNOSIS: Rule out Mycobacterium avium complex infection. POSTOPERATIVE DIAGNOSIS: Rule out Mycobacterium avium complex infection. OPERATORS: 1. Dr. Smallwood. 2. Dr. Lewis. There were informed consent and universal time-out. The patient's procedure was done in room #2. ANESTHESIA PROVIDED: General anesthesia. DESCRIPTION OF PROCEDURE: After the patient was adequately sedated and being fully monitored, the bronchoscope was inserted through the right nostril. It passed through the right nasopharynx into the oropharynx. The hypopharynx was identified and topicalized. The hypopharyngeal structures including anterior commissure, true cords, false cords, piriform sinuses - right and left, valleculae, and epiglottis all appeared normal. The glottic opening was topicalized with lidocaine. Afterwards, the bronchoscope was pushed through the glottic opening into the trachea. The trachea appeared normal. Tracheal noah was sharp. The right and left mainstem were topicalized with lidocaine. Right upper lobe and its 3 segments, the right middle lobe and its 2 segments, the right lower lobe and its 5 segments, left upper lobe proper and its 2 segments, the lingula and its 2 segments, and the left lower lobe and its 4 segments all had similar findings of diffuse mild erythema of the airways. There were scant secretions, mostly white in color. There was no dominant mass or tumor. There was no significant mucosal friability. Next, the bronchoscope was wedged into the right middle lobe. Formal BAL took place. About 30 mL was recovered. After that, the trap was changed, and the bronchoscope was wedged into the lingula, and then another BAL took place. Again, 30 mL was recovered. Specimens will be labelled appropriately and sent to the laboratory for analysis. Additional recommendations and suggestions are forthcoming. The patient tolerated the procedure well and will be recovered. MMODL / IJN: [id number] /
[2022-06-25 20:03] LABS: Appearance,BF Slightly Cloudy
== END 2022-06-25 14:07 | disposition home or self-care (01) ==
LOC: ORWHC2ENDO 12:17
PROVIDERS: ATTEND Internal Medicine Critical Care Medicine
DX: J47.9 Bronchiectasis, uncomplicated (principal); I10 Essential (primary) hypertension; E78.5 Hyperlipidemia, unspecified; R05.9 Cough, unspecified; K51.90 Ulcerative colitis, unspecified, without complications; Z98.890 Other specified postprocedural states; Z98.891 History of uterine scar from previous surgery; Z79.899 Other long term (current) drug therapy
CPT/HCPCS: 94640; 87798 ×3; 87496; 87498; 87529; 88108; 88305; 89050; 88312; 87252; 87502; 87634; 87070; 87205; 87116; 87102; 87206; 31624; J2001 ×3; J2250; J0461; J3010; J2704

== ENCOUNTER → 2022-12-09 | Outpatient (CLI) | payer MEDICARE ==
[2022-12-09 15:38] LABS: HCT 38.9 % (37.2-46.3); HGB 12.1 g/dL (12.0-15.0); MCH 33.8 pg (27.0-32.0); MCHC 31.1 g/dL (32.0-37.0); MCV 108.7 fL (80.0-97.0); Mean Platelet Volume 9.6 fL (9.5-12.2); NRBC Per 100 WBC 0 /100 WBCS (0.0-0.0); Platelet Count 285 X 10*3/uL (140-440); RBC 3.58 X 10*6/uL (4.10-5.20); WBC 5.62 X 10*3/uL (4.50-10.00)
[2022-12-09 15:57] LABS: ALT 23 U/L (8-44); AST 23 U/L (13-35); African American GFR (CKD) 113.1 (60.0-200.0); Albumin 4.6 g/dL (3.8-4.9); Albumin/Globulin Ratio 1.94 (1.60-3.17); Alkaline Phosphatase 49 U/L (41-126); BUN/Creat Ratio 24.23 Ratio (12.00-20.00); Blood Urea Nitrogen 13.4 mg/dL (9.0-27.0); Calcium 9.7 mg/dL (8.7-10.3); Carbon Dioxide 28.1 mmol/L (20.0-27.5); Chloride 104 mmol/L (96-109); Chol/HDL Ratio 1.97 Ratio; Globulin 2.4 g/dL (1.6-3.3); Glucose 84 mg/dL (70-110); LDL Cholesterol,Calculated 74.1 mg/dL (0.0-131.0); Non-African American GFR(CKD) 97.6 (60.0-200.0); Potassium 4.2 mmol/L (3.5-5.5); Sodium 142 mmol/L (135-145); VLDL Calculation 10.98 mg/dL (5.00-40.00)
[2022-12-09 18:44] LABS: Basophils # (A) 0.05 X 10*3/uL (0.00-0.10); Basophils % (A) 0.9 %; Eosinophils # (A) 0.12 X 10*3/uL (0.04-0.35); Eosinophils % (A) 2.1 %; Immature Grans, Automated 0.2 %; Lymphocytes # (A) 0.88 X 10*3/uL (0.90-5.00); Lymphocytes % (A) 15.7 %; Monocytes # (A) 0.47 X 10*3/uL (0.20-1.00); Monocytes % (A) 8.4 %; Neutrophils # (A) 4.09 X 10*3/uL (1.80-7.70); Neutrophils % (A) 72.7 %
== END | disposition home or self-care (01) ==
LOC: LABWHC1 09:09
PROVIDERS: ATTEND Family Medicine
DX: Z13.29 Encounter for screening for other suspected endocrine disorder (principal); I10 Essential (primary) hypertension; E78.2 Mixed hyperlipidemia; K51.90 Ulcerative colitis, unspecified, without complications
CPT/HCPCS: 36415; 80053; 80061; 84443; 85025

== ENCOUNTER 2022-12-31 10:04 | Day surgery (SDC) | payer MEDICARE ==
[~2022-12-31 10:04] MED LIST changes: -ALBUTEROL NEB (CONC) 2.5 MG/0.5 ML INHALATION ONE; -ATROPINE SULFATE 0.4 MG/ML 1 ML VIAL IM ONE; +LIDOCAINE 1% (10MG/ML) FOR IV START INTRADERMA PRN; -LIDOCAINE 2% (PF) 20 MG/ML 5 ML VIAL INHALATION ONE; -LIDOCAINE VISCOUS 300 MG/15 ML CUP MUCOUS MEM ONE; -fentaNYL (PF) 50 MCG/ML 2 ML AMP IV PRN
[2022-12-31 10:39] VITALS: TEMP 97.4
[2022-12-31] MEDS ORDERED: PROPOFOL 10 MG/ML 20 ML VIAL IV ONE (11:20)
--- NOTE | 2022-12-31 11:39 | P.PCN ---
Date of Procedure: 12/31/22 Procedure(s) Performed: BRIEF HISTORY: Patient is a 67-year-old pleasant white female scheduled for an elective colonoscopy as a part of surveillance of long-standing history of ulcerative colitis that was diagnosed in 2009. She is presently maintained on azathioprine 100 mg daily and remains in clinical remission. PROCEDURE PERFORMED: Colonoscopy with random biopsies. PREOPERATIVE DIAGNOSIS: Long-standing history of ulcerative colitis. IV sedation per Anesthesia. PROCEDURE: After informed consent was obtained, the patient, was brought into the endoscopy unit. IV sedation was administered by Anesthesia under continuous monitoring. Digital rectal examination was normal. Initially the Olympus CF-160 flexible video colonoscope was then inserted in the rectum, gradually advanced into the cecum without any difficulty. Careful examination was performed as the scope was gradually being withdrawn. Ileocecal valve and the appendiceal orifice were visualized and appeared normal. Prep was excellent. Mucosa of the cecum, ascending colon, transverse colon, descending colon, sigmoid colon, and rectum appeared normal. There was some loss of haustrations noted in the left colon. Random biopsies were done from the cecum to rectum at every 10 cm into well. Retroflexion was performed in the rectum and small internal hemorrhoids were seen. The patient tolerated the procedure well. IMPRESSION: Normal-appearing colon from rectum to cecum with no evidence of colitis or colorectal neoplasia. Small internal hemorrhoids. RECOMMENDATIONS: Findings of this examination were discussed with the patient as well as a family. She was advised to follow with the biopsy results. If the biopsy does not show any evidence of dysplasia she can have a repeat colonoscopy in 2 years. She will remain on azathioprine 100 mg daily and follow up in office in 6 months..
[2022-12-31 11:47] VITALS: RESP 12
[2022-12-31 12:00] VITALS: BP 151/78; PULSE 77
== END 2022-12-31 12:15 | disposition home or self-care (01) ==
LOC: ORWHC2ENDO 10:04
PROVIDERS: ATTEND Internal Medicine Gastroenterology
DX: K51.90 Ulcerative colitis, unspecified, without complications (principal); K64.8 Other hemorrhoids; I10 Essential (primary) hypertension; E78.5 Hyperlipidemia, unspecified; J47.9 Bronchiectasis, uncomplicated; Z79.899 Other long term (current) drug therapy; Z98.890 Other specified postprocedural states
CPT/HCPCS: 88305; 45380; J2704

== ENCOUNTER → 2023-02-18 | Outpatient (CLI) | payer MEDICARE ==
--- NOTE | 2023-02-19 19:05 | CT ---
EXAMINATION TYPE: High resolution CT chest DATE OF EXAM: 02/18/2023 COMPARISON: 01/23/2022 HISTORY: 67-year-old female A31.0 Chronic cough. Lady [place] syndrome. TECHNIQUE: Thin cut CT chest without contrast utilizing 1 mm slice thickness at 1 cm gap or HRCT prot ocol. Both prone and supine imaging is performed. CT DLP: 537.3mGycm. Automatic exposure control utilized for a dose reduction. FINDINGS: The heart is normal size without pericardial effusion. LAD coronary artery calcifications are present . Minimal atherosclerotic arch calcifications with conventional arch vessel branching anatomy. No thoracic lymphadenopathy by CT size criteria although assessment limited by HRCT technique. There are small fatty Bochdalek hernias on both sides. Minimal biapical pleural parenchymal scarring. Some mild residual strandy scarring remains at the bas ilar medial right middle lobe and inferior lingula. Some residual minimal endobronchial debris and as sociated inferior lingular bronchiolectasis. We do note improvement from prior exam. No consolidation or pleural effusion. No abnormal tree-in-bud opacities are seen. On expiratory imaging, there is minimal basilar air trapping. No honeycombing, centrilobular nodulari ty, thickening of the bronchovascular bundles, or dominant groundglass changes. Visualized upper abdomen shows no gross abnormality. IMPRESSION: 1. Improvement in opacities at the basilar right middle lobe and inferior lingula compared to 2. Minimal strandy scarring remains as well as some minimal endobronchial debris and associated infer ior lingular bronchiolectasis. 2. LAD coronary artery calcifications.
== END | disposition home or self-care (01) ==
LOC: RADCTMAIN 16:28
PROVIDERS: ATTEND Internal Medicine Critical Care Medicine
DX: A31.0 Pulmonary mycobacterial infection (principal); J98.4 Other disorders of lung; J47.9 Bronchiectasis, uncomplicated; I25.10 Atherosclerotic heart disease of native coronary artery without angina pectoris
CPT/HCPCS: 71250

== ENCOUNTER → 2023-05-30 | Outpatient (CLI) | payer MEDICARE ==
[2023-05-30 16:01] LABS: ALT 20 U/L (8-44); AST 25 U/L (13-35); Albumin 4.5 g/dL (3.8-4.9); Albumin/Globulin Ratio 1.96 Ratio (1.60-3.17); Alkaline Phosphatase 48 U/L (41-126); BUN/Creat Ratio 21.33 Ratio (12.00-20.00); Blood Urea Nitrogen 12.8 mg/dL (9.0-27.0); Calcium 9.8 mg/dL (8.7-10.3); Carbon Dioxide 29.1 mmol/L (21.6-31.8); Chloride 103 mmol/L (96-109); Globulin 2.3 g/dL (1.6-3.3); Glucose 93 mg/dL (70-110); LDL Cholesterol,Calculated 64.6 mg/dL (0.0-131.0); Potassium 4.8 mmol/L (3.5-5.5); Sodium 141 mmol/L (135-145); Total Bilirubin 0.4 mg/dL (0.3-1.2); Total Protein 6.8 g/dL (6.2-8.2); VLDL Calculation 10.58 mg/dL (5.00-40.00)
== END | disposition home or self-care (01) ==
LOC: LABWHC1 09:10
PROVIDERS: ATTEND Nurse Practitioner Adult Health
DX: I10 Essential (primary) hypertension (principal); E78.2 Mixed hyperlipidemia
CPT/HCPCS: 36415; 80053; 80061

== ENCOUNTER → 2023-09-03 | Outpatient (CLI) | payer MEDICARE ==
--- NOTE | 2023-09-04 22:14 | MM ---
Reason for Exam: Screening (asymptomatic). Last mammogram was performed 1 year(s) and 2 month(s) ago. Patient History: Menarche at age 12. First Full-Term at age 26. Left ovary removed at age 54. Right ovary removed at age 54. Hysterectomy at age 54. Postmenopausal. Hormonal Contraceptives for 9 years from age 21 until age 30. 05/2005, Benign Excisional Biopsy on the right side. Cyst Aspiration on the Left side. Cyst Aspiration on the Left side. Excisional Biopsy on the Left side. Risk Values: Maria Del Carmen 5 year model risk: 2.8%. NCI Lifetime model risk: 9.5%. Prior Study Comparison: 01/16/2021 Left Diagnostic Mammogram, [facility]. 06/05/2021 Bilateral Screening Mammogram, [facility]. 06/24/2022 Bilateral MG 3D screening mammo w/cad, [facility]. Tissue Density: The breast tissue is heterogeneously dense. This may lower the sensitivity of mammography. Findings: Analyzed By CAD. Bilateral benign vascular calcifications are redemonstrated. Unchanged asymmetric density medial left CC view and central superior left MLO view. No persisting abnormality on 3-D images. There is no suspicious group of microcalcifications or new suspicious mass in either breast. Overall Assessment: Benign, BI-RAD 2 Management: Screening Mammogram of both breasts in 1 year. . Patient should continue monthly self-breast exams. A clinical breast exam by your physician is recommended on an annual basis. This exam should not preclude additional follow-up of suspicious palpable abnormalities. Note on Maria Del Carmen scores and lifetime risk: 1. A Maria Del Carmen score greater than 3% is considered moderate risk. If this is the case, consider specialist referral to assess eligibility for a risk reducing agent. 2. If overall lifetime risk for the development of breast cancer is 20% or higher, the patient may qualify for future screening with alternating mammogram and breast MRI. Electronically signed and approved by: Yina Hackett M.D. Radiologist
== END | disposition home or self-care (01) ==
LOC: RADMAMWWP 10:15
PROVIDERS: ATTEND Obstetrics & Gynecology
DX: Z12.31 Encounter for screening mammogram for malignant neoplasm of breast (principal); Z78.0 Asymptomatic menopausal state
CPT/HCPCS: 77063; 77067

== ENCOUNTER → 2023-10-27 | Outpatient (CLI) | payer MEDICARE ==
--- NOTE | 2023-10-27 18:10 | XR ---
EXAMINATION TYPE: XR lumbar spine 2 or 3V DATE OF EXAM: 10/27/2023 4:13 PM CLINICAL INDICATION:Female, 67 years old with history of M54.16 Lumbar region radiculopathy; [facility] COMPARISON: None TECHNIQUE: XR lumbar spine 2 or 3V - Frontal, lateral and coned in L5-S1 lateral views of the spine. FINDINGS: Degeneration changes throughout the spine with osteophyte formation and facet arthropathy. Pseudoarthrosis of the spinous processes. Mild wedging of the lower thoracic spine as visualized. Gra de 2 anterolisthesis of L4 and L5. No evidence for spondylolysis. No evidence of fracture. No foramin al stenosis worse at L4-L5 with at least mild to moderate stenosis. IMPRESSION: 1. 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 2. Grade 2 anterolisthesis of L4 on L5. No spondylolysis identified
== END | disposition home or self-care (01) ==
LOC: RADXRMAIN 16:01
PROVIDERS: ATTEND Family Medicine
DX: M51.16 Intervertebral disc disorders with radiculopathy, lumbar region (principal); M48.061 Spinal stenosis, lumbar region without neurogenic claudication
CPT/HCPCS: 72100

== ENCOUNTER → 2023-11-17 | Outpatient (CLI) | payer MEDICARE ==
--- NOTE | 2023-11-17 17:34 | XR ---
EXAMINATION TYPE: XR chest 2V DATE OF EXAM: 11/17/2023 1:57 PM CLINICAL INDICATION:Female, 67 years old with history of J47.9, R07.9; [facility] COMPARISON: Chest radiographs from 10/26/2021. TECHNIQUE: XR chest 2V Frontal and lateral views of the chest. FINDINGS: Lungs/Pleura: There is flattening of the diaphragm with increased lucency of the lungs. No evidence o f pneumothorax, pleural effusion or focal consolidation. Pulmonary vascularity: Unremarkable. Heart/mediastinum: Cardiomediastinal silhouette is unremarkable. Musculoskeletal: No acute osseous pathology. IMPRESSION: 1. No acute cardiopulmonary disease process. 2. COPD changes.
== END | disposition home or self-care (01) ==
LOC: RADXRMAIN 13:44
PROVIDERS: ATTEND Family Medicine
DX: J44.9 Chronic obstructive pulmonary disease, unspecified (principal); J47.9 Bronchiectasis, uncomplicated
CPT/HCPCS: 71046

== ENCOUNTER → 2024-03-17 | Outpatient (CLI) | payer MEDICARE ==
[2024-03-17 16:15] LABS: ALT 22 U/L (8-44); AST 27 U/L (13-35); Chol/HDL Ratio 1.89 Ratio; LDL Cholesterol,Calculated 69.8 mg/dL (0.0-131.0); VLDL Calculation 10.52 mg/dL (5.00-40.00)
== END | disposition home or self-care (01) ==
LOC: LABWHC1 10:46
PROVIDERS: ATTEND Internal Medicine Interventional Cardiology
DX: E78.2 Mixed hyperlipidemia
CPT/HCPCS: 36415; 80061; 82306; 84443; 84450; 84460

== ENCOUNTER → 2024-05-12 | Outpatient (CLI) | payer MEDICARE ==
[2024-05-12 16:07] LABS: HCT 36.4 % (37.2-46.3); HGB 11.6 g/dL (12.0-15.0); MCH 33.4 pg (27.0-32.0); MCHC 31.9 g/dL (32.0-37.0); MCV 104.9 FL (80.0-97.0); Mean Platelet Volume 9.3 FL (9.5-12.2); NRBC Per 100 WBC 0 X 10*3/uL (0.00-0.01); Platelet Count 318 X 10*3/uL (140-440); RBC 3.47 X 10*6/uL (4.10-5.20); RDW 13.9 % (11.5-14.5); WBC 3.92 X 10*3/uL (4.50-10.00)
[2024-05-12 16:42] LABS: ALT 20 U/L (8-44); AST 25 U/L (13-35); Albumin 4.2 g/dL (3.8-4.9); Albumin/Globulin Ratio 1.83 Ratio (1.60-3.17); Alkaline Phosphatase 47 U/L (41-126); Blood Urea Nitrogen 13.8 mg/dL (9.0-27.0); Calcium 9.4 mg/dL (8.7-10.3); Carbon Dioxide 27.7 mmol/L (21.6-31.8); Chloride 99 mmol/L (96-109); Globulin 2.3 g/dL (1.6-3.3); Glucose 131 mg/dL (70-110); Sodium 138 mmol/L (135-145); Total Bilirubin 0.4 mg/dL (0.3-1.2); Total Protein 6.5 g/dL (6.2-8.2)
== END | disposition home or self-care (01) ==
LOC: LABWHC1 12:29
PROVIDERS: ATTEND Internal Medicine Gastroenterology
DX: K51.90 Ulcerative colitis, unspecified, without complications (principal)
CPT/HCPCS: 36415; 80053; 85027

== ENCOUNTER 2024-05-30 12:00 | Emergency (ER) | payer MEDICARE ==
[2024-05-30 12:04] VITALS: TEMP 98.2
--- NOTE | 2024-05-30 12:36 | ED ---
General Adult HPI - General Chief complaint: Dizziness Stated complaint: nausea Time Seen by Provider: 05/30/24 12:10 Source: patient Mode of arrival: ambulatory Limitations: no limitations - History of Present Illness Initial comments: Dictation was produced using [employer] dictation software. please excuse any grammatical, word or spelling errors. Chief Complaint: 68-year-old female with no significant comorbidities presents to the emergency department for syncope History of Present Illness: Patient is a 68-year-old female presents to the emergency department with syncope. She was laying on the side of the bed looking at a toy catalog when all of a sudden she passed out for a few seconds. Syncopal episode was observed by patient's was at the bedside states that she looked like she fully passed out for couple seconds. Patient denies any cardiac history. She does however follow-up with a data base administrator for monitoring of carotid stenosis along with ACS given that she has extensive family history. She had a stress test a month and a half ago that was negative. Denies ever having had a cath. Denies any chest pain or shortness of breath. Patient states she feels a little lightheaded right now. Associated palpitations. Denies any pain complaints The ROS documented in this emergency department record has been reviewed and confirmed by me. Those systems with pertinent positive or negative responses have been documented in the HPI. All other systems are other negative and/or noncontributory. - Related Data Home Medications Medication Instructions Recorded Confirmed Mesalamine [Lialda] 4.8 gm PO DAILY 11/27/13 12/30/22 azaTHIOprine [Imuran] 100 mg PO HS 11/27/13 12/30/22 lisinopriL [Zestril] 5 mg PO QAM 11/27/13 12/30/22 Multivitamins, Thera [Multivitamin 1 tab PO DAILY 03/04/18 12/30/22 (formulary)] Simvastatin [Zocor] 20 mg PO HS 10/26/21 12/30/22 Allergies Allergy/AdvReac Type Severity Reaction Status Date / Time No Known Allergies Allergy Verified 05/30/24 12:04 Review of Systems ROS Statement: Those systems with pertinent positive or pertinent negative responses have been documented in the HPI. ROS Other: All systems not noted in ROS Statement are negative. Past Medical History Past Medical History: Hearing Disorder / Deafness, Hyperlipidemia, Hypertension Additional Past Medical History / Comment(s): Ulcerative Colitis. Recent "cough, had negative chest xray, but found mac bacterial infection". Varicose veins. Hard of hearing right ear. History of Any Multi-Drug Resistant Organisms: None Reported Past Surgical History: Breast Surgery, Section, Hysterectomy Additional Past Surgical History / Comment(s): Bilateral breast lumpectomy, colonoscopy. Past Anesthesia/Blood Transfusion Reactions: No Reported Reaction Additional Past Anesthesia/Blood Transfusion Reaction / Comment(s): Hx Vertigo. Past Psychological History: No Psychological Hx Reported Smoking Status: Never smoker Past Alcohol Use History: None Reported Past Drug Use History: None Reported - Past Family History Brother(s) Family Medical History: Cancer Additional Family Medical History / Comment(s): Throat Cancer. General Exam - General Exam Comments Initial Comments: PHYSICAL EXAM: General Impression: Alert and oriented x3, not in acute distress HEENT: Normocephalic atraumatic, extra-ocular movements intact, pupils equal and reactive to light bilaterally, mucous membranes moist. Cardiovascular: Heart regular rate and rhythm Chest: Able to complete full sentences, no retractions, no tachypnea Abdomen: abdomen soft, non-tender, non-distended, no organomegaly Musculoskeletal: Pulses present and equal in all extremities, no peripheral edema Motor: no focal deficits noted Neurological: CN II-XII grossly intact, no focal motor or sensory deficits noted Skin: Intact with no visualized rashes Psych: Normal affect and mood Limitations: no limitations Course Vital Signs 05/30/24 12:03 Temperature 98.2 F Pulse Rate 63 Respiratory 20 Rate Blood Pressure 174/78 O2 Sat by Pulse 99 Oximetry EKG Findings - EKG Comments: EKG Findings:: My EKG interpretation: Ventricular rate 60, sinus rhythm,. 132, QRS 84, QTc 398. No RI prolongation, no QTC prolongation, no ST or T-wave changes noted. Overall, this EKG is unremarkable Medical Decision Making - Medical Decision Making Was pt. sent in by a medical professional or institution (, PA, ROUTER SETTER, urgent care, hospital, or longterm...) When possible be specific @ -No Did you speak to anyone other than the patient for history (EMS, parent, family, police, friend...)? What history was obtained from this source @ - as described above Did you review nursing and triage notes (agree or disagree)? Why? @ -I reviewed and agree with nursing and triage notes Were old charts reviewed (outside hosp., previous admission, EMS record, old EKG, old radiological studies, urgent care reports/EKG's, longterm records)? Report findings @ -No old charts were reviewed Differential Diagnosis (chest pain, altered mental status, abdominal pain women, abdominal pain men, vaginal bleeding, musculoskeletal, weakness, fever, dyspnea, syncope, headache, dizziness, GI bleed, back pain, seizure, CVA, palpatations, mental health)? @ -Differential Syncope: Valvular disease, hypertrophic cardiomyopathy, pulmonary embolism, tamponade, tachycardia, bradycardia, NV, hypovolemia, hemorrhage, dissection, anemia, intracranial hemorrhage, seizure, hypoglycemia, carbon monoxide poisoning, this is not meant to be an all-inclusive list. EKG interpreted by me (3pts min.). @ -As above X-rays interpreted by me (1pt min.). @ -None done CT interpreted by me (1pt min.). @ -None done U/S interpreted by me (1pt. min.). @ -None done What testing was considered but not performed or refused? (CT, X-rays, U/S, labs)? Why? @ -None What meds were considered but not given or refused? Why? @ -None Was smoking cessation discussed for >3mins.? @ -No Were there social determinants of health that impacted care today? How? (Homelessness, low income, unemployed, alcoholism, drug addiction, transportation, low edu. Level, literacy, decrease access to med. care, retirement, rehab)? @ -No Was there de-escalation of care discussed even if they declined (Discuss DNR or withdrawal of care, Hospice)? DNR status @ -No What co-morbidities impacted this encounter? (DM, HTN, Smoking, COPD, CAD, Cancer, CVA, ARF, Chemo, Hep., AIDS, mental health diagnosis, sleep apnea, morbid obesity)? @ -None Was patient admitted / discharged? Hospital course, mention meds given and route, prescriptions, significant lab abnormalities, going to OR and other perti nent info. @ -68-year-old female after syncopal episode. Vital signs stable. Patient has no history of cardiac illness. Laboratory evaluation obtained. Patient reevaluated bedside after IV fluids with improvement of symptoms. Patient discharged advised follow-up with primary care doctor. Patient has no high risk features. Did you discuss the management of the patient with other professionals (professionals i.e. , PA, ROUTER SETTER, lab, RT, psych nurse, social work manager, home care nurse, teacher, consular officer, casework supervisor)? Give summary @ -No Was critical care preformed (if so, how long)? @ -No Undiagnosed new problem with uncertain prognosis? @ -No Drug Therapy requiring intensive monitoring for toxicity (Heparin, Nitro, Insulin, Cardizem)? @ -No Were any procedures done? @ -No Diagnosis/symptom? Acute, or Chronic, or Acute on Chronic? Uncomplicated (without systemic symptoms) or Complicated (systemic symptoms)? @ -Syncope Side effects of treatment? @ -No Exacerbation, Progression, or Severe Exacerbation? @ -No Poses a threat to life or bodily function? How? (Chest pain, USA, NV, pneumonia, PE, COPD, DKA, ARF, appy, cholecystitis, CVA, Diverticulitis, Homicidal, Suicidal, threat to staff... and all critical care pts) @ -No - Lab Data Result diagrams: 05/30/24 12:53 05/30/24 12:53 Lab Results 05/30/24 05/30/24 05/30/24 Range/Units 12:53 12:53 12:53 WBC 7.2 (3.8-10.6) k/uL RBC 3.62 L (3.80-5.40) m/uL Hgb 12.4 (11.4-16.0) gm/dL Hct 37.8 (34.0-46.0) % MCV 104.5 H (80.0-100.0) fL MCH 34.4 (25.0-35.0) pg MCHC 32.9 (31.0-37.0) g/dL RDW 14.6 (11.5-15.5) % Plt Count 246 (150-450) k/uL MPV 7.6 Neutrophils % 83 % Lymphocytes % 8 % Monocytes % 6 % Eosinophils % 1 % Basophils % 1 % Neutrophils # 6.0 (1.3-7.7) k/uL Lymphocytes # 0.6 L (1.0-4.8) k/uL Monocytes # 0.4 (0-1.0) k/uL Eosinophils # 0.1 (0-0.7) k/uL Basophils # 0.0 (0-0.2) k/uL Macrocytosis Moderate Sodium 134 L (137-145) mmol/L Potassium 4.6 (3.5-5.1) mmol/L Chloride 102 (98-107) mmol/L Carbon Dioxide 26 (22-30) mmol/L Anion Gap 6 mmol/L BUN 13 (7-17) mg/dL Creatinine 0.48 L (0.52-1.04) mg/dL Est GFR (CKD-EPI)AfAm >90 (>60 ml/min/1.73 sqM) Est GFR (CKD-EPI)NonAf >90 (>60 ml/min/1.73 sqM) Glucose 101 H (74-99) mg/dL Calcium 9.3 (8.4-10.2) mg/dL Total Bilirubin 0.6 (0.2-1.3) mg/dL AST 31 (14-36) U/L ALT 18 (4-34) U/L Alkaline Phosphatase 44 (38-126) U/L Troponin I <0.012 (0.000-0.034) ng/mL Total Protein 6.8 (6.3-8.2) g/dL Albumin 4.3 (3.5-5.0) g/dL Disposition Clinical Impression: Syncope Disposition: HOME SELF-CARE Condition: Fair Instructions (If sedation given, give patient instructions): Syncope (ED) Is patient prescribed a controlled substance at d/c from ED?: No Referrals: Mally Hammer MD [Primary Care Provider] - 1-2 days Time of Disposition: 14:28
[2024-05-30] MEDS: SODIUM CHLORIDE 0.9% 1,000 ML IV STA (12:51)
[2024-05-30 13:36] LABS: ALT 18 U/L (4-34); AST 31 U/L (14-36); African American GFR (CKD) >90 (>60 ml/min/1.73 sqM); Albumin 4.3 g/dL (3.5-5.0); Alkaline Phosphatase 44 U/L (38-126); Anion Gap 6 mmol/L; Blood Urea Nitrogen 13 mg/dL (7-17); Calcium 9.3 mg/dL (8.4-10.2); Carbon Dioxide 26 mmol/L (22-30); Chloride 102 mmol/L (98-107); Glucose 101 mg/dL (74-99); Non-African American GFR(CKD) >90 (>60 ml/min/1.73 sqM); Potassium 4.6 mmol/L (3.5-5.1); Sodium 134 mmol/L (137-145); Total Bilirubin 0.6 mg/dL (0.2-1.3); Total Protein 6.8 g/dL (6.3-8.2)
[2024-05-30 13:43] LABS: Basophils % (A) 1 %; Eosinophils # (A) 0.1 k/uL (0-0.7); Eosinophils % (A) 1 %; HCT 37.8 % (34.0-46.0); HGB 12.4 gm/dL (11.4-16.0); Lymphocytes # (A) 0.6 k/uL (1.0-4.8); Lymphocytes % (A) 8 %; MCH 34.4 pg (25.0-35.0); MCHC 32.9 g/dL (31.0-37.0); MCV 104.5 fL (80.0-100.0); Macrocytosis Moderate; Mean Platelet Volume 7.6; Monocytes # (A) 0.4 k/uL (0-1.0); Monocytes % (A) 6 %; Neutrophils % (A) 83 %; Platelet Count 246 k/uL (150-450); RBC 3.62 m/uL (3.80-5.40); RDW 14.6 % (11.5-15.5); WBC 7.2 k/uL (3.8-10.6)
[2024-05-30] MEDS: ONDANSETRON 4 MG ODT STARTER PACK 2 TAB BTL PO STA (14:34)
[2024-05-30 14:37] VITALS: BP 146/72; PULSE 66; RESP 18
== END 2024-05-30 14:37 | disposition home or self-care (01) ==
LOC: EC 12:00
DX: R55 Syncope and collapse (principal)
CPT/HCPCS: 36415; 93005; 80053; 84484; 85025; 99284; 96360; S0119

== ENCOUNTER → 2024-06-02 | Outpatient (CLI) | payer MEDICARE ==
--- NOTE | 2024-06-06 22:33 | BD ---
EXAMINATION TYPE: Axial Bone Density DATE OF EXAM: 06/02/2024 CLINICAL HISTORY: 68 years old Female. ICD-10 CODE: M81.0 AGE-RELATED OSTEOPOROSIS W/O CURRENT PATHO LOGY , Additional History: Height: 59.5 Weight: 106 FRAX RISK QUESTIONS: Family History (Parent hip fracture): no History of Fracture in Adulthood: yes Secondary Osteoporosis: no RISK FACTORS HISTORY OF: History of Left Wrist Fracture: yes When: 2015 Surgery to Spine/Hip(right/left)/Wrist (right/left): no MEDICATIONS: Thyroid Medications: no Osteoporosis Medications: no EXAM MEASUREMENTS: Bone mineral densitometry was performed using the [employer] System. Bone mineral density as measured about the Lumbar spine is: ----- L1-L4(G/cm2): 0.813 T Score Values are as follows: ----- L1: -2.7 ----- L2: -3.4 ----- L3: -3.0 ----- L4: -3.2 ----- L1-L4: -3.1 Z Score Values are as follows: ----- L1: -0.6 ----- L2: -1.3 ----- L3: -0.8 ----- L4: -1.1 ----- L1-L4: -0.9 Bone mineral density has: Increased 4.1% since study of: 11/27/2021 Bone mineral density about the R hip (g/cm2): 0.529 Bone mineral density about the L hip (g/cm2): 0.569 T Score values are as follows: -----R Neck: -3.6 -----L Neck: -3.5 -----R Total: -3.8 -----L Total: -3.5 Z Score values are as follows: -----R Neck: -1.7 -----L Neck: -1.5 -----R Total: -2.1 -----L Total: -1.7 Bone mineral density has: Decreased -6.0% since study of: 11/27/2021 FRAX%s: The graph provided illustrates a 35.5% chance for a major osteoporotic fx and a 16.2% chance for the hips probability for fx in 10 years time. IMPRESSION: Osteoporosis (T Score less than -2.5). There is increased fracture risk and therapy is usually indicated based on age. Re-Screen 1-2 years. NOTE: T-SCORE=SD OF THE YOUNG ADULT MEAN. [facility], , 06/06/2024 10:30 PM
== END | disposition home or self-care (01) ==
LOC: RADBDWWP 15:18
PROVIDERS: ATTEND Family Medicine
DX: M81.0 Age-related osteoporosis without current pathological fracture (principal)
CPT/HCPCS: 77080

== ENCOUNTER → 2024-06-03 | Outpatient (CLI) | payer MEDICARE ==
--- NOTE | 2024-06-06 21:08 | XR ---
EXAMINATION TYPE: XR ribs RT DATE OF EXAM: 06/03/2024 2:23 PM COMPARISON: None. CLINICAL INDICATION: Female, 68 years old with history of R07.89 OTHER CHEST PAIN, TECHNIQUE: 2 view(s) obtained. FINDINGS: Osteochondral cartilage calcification is present. No acute fractures are identified. No pneumothorax is evident. IMPRESSION: 1. No acute right rib fractures [facility], , 06/06/2024 9:06 PM
== END | disposition home or self-care (01) ==
LOC: RADXRMAIN 14:04
PROVIDERS: ATTEND Family Medicine
DX: R07.89 Other chest pain (principal)

== ENCOUNTER → 2024-10-01 | Outpatient (CLI) | payer MEDICARE ==
[2024-10-01 15:22] LABS: Chol/HDL Ratio 2.14 Ratio; LDL Cholesterol,Calculated 59.4 mg/dL (0.0-131.0); VLDL Calculation 15.64 mg/dL (5.00-40.00)
[2024-10-01 15:23] LABS: ALT 23 U/L (8-44); AST 26 U/L (13-35); Albumin 4.1 g/dL (3.8-4.9); Albumin/Globulin Ratio 1.71 Ratio (1.60-3.17); Alkaline Phosphatase 53 U/L (41-126); Calcium 9.3 mg/dL (8.7-10.3); Carbon Dioxide 29.1 mmol/L (21.6-31.8); Chloride 104 mmol/L (96-109); Globulin 2.4 g/dL (1.6-3.3); Glucose 74 mg/dL (70-110); Sodium 142 mmol/L (135-145); Total Bilirubin 0.4 mg/dL (0.3-1.2); Total Protein 6.5 g/dL (6.2-8.2)
== END | disposition home or self-care (01) ==
LOC: LABWHC1 09:04
PROVIDERS: ATTEND Internal Medicine Interventional Cardiology
DX: E78.2 Mixed hyperlipidemia (principal)
CPT/HCPCS: 36415; 80053; 80061

== ENCOUNTER → 2024-11-17 | Outpatient (CLI) | payer MEDICARE ==
--- NOTE | 2024-11-17 16:34 | XR ---
EXAMINATION TYPE: XR chest 2V DATE OF EXAM: 11/17/2024 4:22 PM COMPARISON: 05/04/2024 CLINICAL INDICATION: Female, 68 years old with history of M54.9, R05.9, cough and congestion for one and a half weeks. TECHNIQUE: Frontal and lateral views FINDINGS: Heart upper limits of normal in size. Aorta and pulmonary vasculature within normal limits. Hyperinfl ation. No consolidation or pleural effusion. IMPRESSION: Possible underlying COPD. Clinically correlate. Otherwise, no acute process seen. [facility], Workstation: [email or web address]-KARINA, 11/17/2024 4:31 PM
== END | disposition home or self-care (01) ==
LOC: RADXRMAIN 16:11
PROVIDERS: ATTEND Family Medicine
DX: M54.9 Dorsalgia, unspecified (principal); R05.9 Cough, unspecified
CPT/HCPCS: 71046

== ENCOUNTER → 2024-12-09 | Outpatient (CLI) | payer MEDICARE ==
--- NOTE | 2024-12-09 12:36 | MM ---
Reason for Exam: Screening (asymptomatic). Last mammogram was performed 1 year(s) and 3 month(s) ago. Patient History: Menarche at age 12. First Full-Term at age 26. Left ovary removed at age 54. Right ovary removed at age 54. Hysterectomy at age 54. Postmenopausal. Hormonal Contraceptives for 9 years from age 21 until age 30. 05/2005, Benign Excisional Biopsy on the right side. Cyst Aspiration on the Left side. Cyst Aspiration on the Left side. Excisional Biopsy on the Left side. Risk Values: Maria Del Carmen 5 year model risk: 2.8%. NCI Lifetime model risk: 9.1%. Prior Study Comparison: 06/05/2021 Bilateral Screening Mammogram, [facility]. 06/24/2022 Bilateral MG 3D screening mammo w/cad, [facility]. 09/03/2023 Bilateral MG 3D screening mammo w/cad, [facility]. Tissue Density: The breasts are heterogeneously dense, which may obscure small masses. Findings: Analyzed By CAD. Right breast: There is no suspicious group of microcalcifications or new suspicious mass. Left breast: There is no suspicious group of microcalcifications or new suspicious mass. Overall Assessment: Negative, BI-RAD 1 Management: Screening Mammogram of both breasts in [address] [facility] will attempt to contact patient to return for supplemental views and ultrasound if indicated. Patient should continue monthly self-breast exams. A clinical breast exam by your physician is recommended on an annual basis. This exam should not preclude additional follow-up of suspicious palpable abnormalities. Note on Maria Del Carmen scores and lifetime risk: 1. A Maria Del Carmen score greater than 3% is considered moderate risk. If this is the case, consider specialist referral to assess eligibility for a risk reducing agent. 2. If overall lifetime risk for the development of breast cancer is 20% or higher, the patient may qualify for future screening with alternating mammogram and breast MRI. [facility], , 12/09/2024 11:48 AM. Electronically signed and approved by: Kiel De La Cruz DO
== END | disposition home or self-care (01) ==
LOC: RADMAMWWP 11:24
PROVIDERS: ATTEND Family Medicine
DX: Z12.31 Encounter for screening mammogram for malignant neoplasm of breast (principal); R92.333 Mammographic heterogeneous density, bilateral breasts; Z78.0 Asymptomatic menopausal state
CPT/HCPCS: 77063; 77067

== ENCOUNTER → 2025-02-10 | Outpatient (CLI) | payer MEDICARE ==
[2025-02-11 02:19] LABS: HCT 37.8 % (37.2-46.3); HGB 11.8 g/dL (12.0-15.0); MCH 30.3 pg (27.0-32.0); MCHC 31.2 g/dL (32.0-37.0); MCV 97.2 FL (80.0-97.0); NRBC Per 100 WBC 0 X 10*3/uL (0.00-0.01); Platelet Count 305 X 10*3/uL (140-440); RBC 3.89 X 10*6/uL (4.10-5.20); RDW 13.2 % (11.5-14.5); WBC 6.08 X 10*3/uL (4.50-10.00)
[2025-02-11 02:55] LABS: ALT 21 U/L (8-44); AST 26 U/L (13-35); Albumin 4.2 g/dL (3.8-4.9); Albumin/Globulin Ratio 1.91 Ratio (1.60-3.17); Alkaline Phosphatase 53 U/L (41-126); Anion Gap 12.30 mmol/L (4.00-12.00); BUN/Creat Ratio 24.00 Ratio (12.00-20.00); Blood Urea Nitrogen 14.4 mg/dL (9.0-27.0); Calcium 9.4 mg/dL (8.7-10.3); Carbon Dioxide 25.7 mmol/L (21.6-31.8); Chloride 104 mmol/L (96-109); Globulin 2.2 g/dL (1.6-3.3); Glucose 114 mg/dL (70-110); Potassium 4.3 mmol/L (3.5-5.5); Sodium 142 mmol/L (135-145); Total Protein 6.4 g/dL (6.2-8.2)
== END | disposition home or self-care (01) ==
LOC: LABWHC1 15:49
PROVIDERS: ATTEND Nurse Practitioner Family
DX: K51.90 Ulcerative colitis, unspecified, without complications (principal)
CPT/HCPCS: 36415; 80053; 85027